=== PATIENT | female | born 1940 | race Caucasian/White ===

== ENCOUNTER 2016-11-14 11:45 | Emergency (ER) | payer MEDICARE ==
[~2016-11-14] VITALS: Ht 165.1 cm; Wt 68.0 kg
[2016-11-14 11:46] VITALS: BP 154/70; PULSE 84; RESP 20; TEMP 98.1; O2SAT 98
--- NOTE | 2016-11-14 12:13 | PD ---
Physical Exam Date Seen by Provider: Nov 14, 2016 Time Seen by Provider: 12:09 Data Data Last Documented VS Vital Signs Date Time Temp Pulse Resp B/P Pulse Ox O2 Delivery O2 Flow Rate FiO2 11/14/16 11:46 98.1 84 20 154/70 98 Room Air MDM Supervised Visit with BRIANA: No Narrative Course 76 YO F with complaint of 3 day history of malaise, fever. Saw PCP 11/13, on antibiotics sans improvement. Hx hysterectomy October 12, Dr. Huitron. Vitals reviewed. Awaiting bed placement. Ashley Crockett Nov 14, 2016 12:13
[2016-11-14] MEDS ORDERED: SODIUM CHLOR 0.9% 1000 ML INJ 1,000 ML IV SCH (12:31)
[2016-11-14] MEDS ORDERED: SODIUM CHLORIDE 0.9% FLUSH 10 ML FLUSH IV FLUSH PRN (12:45)
--- NOTE | 2016-11-14 12:45 | PD ---
HPI Chief Complaint: Fever Time Seen by Provider: 12:33 Travel History International Travel<30 days: No Contact w/Intl Traveler<30days: No Traveled to known affect area: No History of Present Illness HPI 76-year-old female with a history of hypothyroidism presents to the emergency department for evaluation of generalized weakness, loss of appetite and fever. The patient states that for the past 3 days she's had worsening weakness and and loss of appetite. States that she has had subjective fevers for 3 days as well. States that yesterday she went to her PCP's office and had a temperature of 102F. States that she had a hysterectomy one month ago 10/12/[address] Huitron. States that she has also noticed worsening abdominal pain over the past 3 days as well. States that yesterday when she saw her PCP he ordered an outpatient CT scan to be done on Wednesday and prescribed her Flagyl and Augmentin for possible infection. The patient states that since yesterday she is feeling worse which is why she presents to the emergency department. Denies any chest pain, shortness of breath, diarrhea, constipation, dysuria, hematuria, vaginal bleeding, vaginal discharge, cough or cold symptoms. Prior abdominal surgeries include a tubal ligation. This recent hysterectomy was a laparoscopic vaginal hysterectomy with right salpingo-oophorectomy and left salpingectomy leaving only the left ovary. PCP is Dr. Huitron. [facility] Past Medical History Hx Anticoagulant Therapy: No Cardiovascular Problems: No Chemotherapy: No Cerebrovascular Accident: No Diabetes: No Respiratory: No Thyroid Disease: Yes Past Surgical History Hysterectomy: Yes Social History Alcohol Use: No Tobacco Use: No Substance Use: No Allergies-Medications (Allergen,Severity, Reaction): Coded Allergies: Cipro (Verified Allergy, Severe, muscle aches, 11/14/16) Codeine (Verified Allergy, Unknown, 11/14/16) Yeast Extracts (Verified Allergy, Unknown, 11/14/16) Zithromax (Verified Allergy, Unknown, 11/14/16) Reported Meds & Prescriptions Reported Meds & Active Scripts Active Macrobid (Nitrofurantoin Monohydrate Macrocrystals) 100 Mg Capsule 100 Mg PO BID 10 Days Review of Systems Except as stated in HPI: all other systems reviewed are Neg Physical Exam Narrative GENERAL: Well-nourished and well-developed pleasant female patient in no acute distress who is nontoxic appearing. SKIN: Warm and dry. HEAD: Normocephalic and atraumatic. EYES: No injection, drainage, or hyphema noted. PERRLA. EOMI. ENT: No nasal drainage noted. Oropharynx is clear. NECK: Supple and the trachea is midline. CARDIOVASCULAR: Regular rate and rhythm. RESPIRATORY: Breath sounds are equal bilaterally with no accessory muscle use, wheezing, rhonchi, or crackles. GASTROINTESTINAL: Well-healed laparoscopic surgical incisions noted. Generalized abdominal tenderness to palpation, worse in the left lower quadrant. No rebound tenderness or guarding. Abdomen is soft and nondistended. MUSCULOSKELETAL: No obvious deformities, swelling, cyanosis, or ecchymosis is present throughout the upper and lower extremities. Patient has full range of motion without any signs of neurovascular compromise. NEUROLOGICAL: Awake, alert, and oriented. Normal speech and gait. Cranial nerves are grossly intact. Data Data Last Documented VS Vital Signs Date Time Temp Pulse Resp B/P Pulse Ox O2 Delivery O2 Flow Rate FiO2 11/14/16 17:56 98.3 78 20 148/72 99 Room Air Orders Complete Blood Count With Diff (11/14/16 12:31) Comprehensive Metabolic Panel (11/14/16 12:31) Lipase (11/14/16 12:31) Prothrombin Time / Inr (Pt) (11/14/16 12:31) Act Partial Throm Time (Ptt) (11/14/16 12:31) Urinalysis - C+S If Indicated (11/14/16 12:31) Ct Abd/Pel W Iv Contrast(Rout) (11/14/16 12:31) Iv Access Insert/Monitor (11/14/16 12:31) Ecg Monitoring (11/14/16 12:31) Oximetry (11/14/16 12:31) Sodium Chlor 0.9% 1000 Ml Inj (Ns 1000 M (11/14/16 12:31) Sodium Chloride 0.9% Flush (Ns Flush) (11/14/16 12:45) Electrocardiogram (11/14/16 12:31) Chest, Single Ap (11/14/16 12:31) Lactic Acid Sepsis Protocol (11/14/16 12:31) Influenzae A/B Antigen (11/14/16 12:31) Blood Culture (11/14/16 12:31) Urine Culture (11/14/16 14:05) Iohexol 350 Inj (Omnipaque 350 Inj) (11/14/16 15:55) Ceftriaxone Inj (Rocephin Inj) (11/14/16 16:30) Labs Laboratory Tests Test 11/14/16 11/14/16 12:45 14:05 White Blood Count 10.9 TH/MM3 Red Blood Count 4.73 MIL/MM3 Hemoglobin 12.3 GM/DL Hematocrit 36.5 % Mean Corpuscular Volume 77.3 FL Mean Corpuscular Hemoglobin 26.0 PG Mean Corpuscular Hemoglobin 33.7 % Concent Red Cell Distribution Width 15.7 % Platelet Count 219 TH/MM3 Mean Platelet Volume 8.8 FL Neutrophils (%) (Auto) 71.2 % Lymphocytes (%) (Auto) 14.5 % Monocytes (%) (Auto) 7.8 % Eosinophils (%) (Auto) 5.4 % Basophils (%) (Auto) 1.1 % Neutrophils # (Auto) 7.8 TH/MM3 Lymphocytes # (Auto) 1.6 TH/MM3 Monocytes # (Auto) 0.9 TH/MM3 Eosinophils # (Auto) 0.6 TH/MM3 Basophils # (Auto) 0.1 TH/MM3 CBC Comment AUTO DIFF Differential Comment AUTO DIFF CONFIRMED Prothrombin Time 12.0 SEC Prothromb Time International 1.1 RATIO Ratio Activated Partial 34.8 SEC Thromboplast Time Sodium Level 138 MEQ/L Potassium Level 3.7 MEQ/L Chloride Level 103 MEQ/L Carbon Dioxide Level 25.1 MEQ/L Anion Gap 10 MEQ/L Blood Urea Nitrogen 14 MG/DL Creatinine 1.00 MG/DL Estimat Glomerular Filtration 54 ML/MIN Rate Random Glucose 111 MG/DL Lactic Acid Level 1.3 mmol/L Calcium Level 8.8 MG/DL Total Bilirubin 0.7 MG/DL Aspartate Amino Transf 28 U/L (AST/SGOT) Alanine Aminotransferase 36 U/L (ALT/SGPT) Alkaline Phosphatase 89 U/L Total Protein 7.4 GM/DL Albumin 2.9 GM/DL Lipase 79 U/L Urine Color YELLOW Urine Turbidity HAZY Urine pH 5.5 Urine Specific [place] 1.009 Urine Protein NEG mg/dL Urine Glucose (UA) NEG mg/dL Urine Ketones 40 mg/dL Urine Occult Blood NEG Urine Nitrite NEG Urine Bilirubin NEG Urine Urobilinogen LESS THAN 2.0 MG/DL Urine Leukocyte Esterase LARGE Urine RBC 3 /hpf Urine WBC 83 /hpf Urine Squamous Epithelial 1 /hpf Cells Urine Transitional Epithelial 1 /hpf Cells Urine Renal Epithelial Cells 1 /hpf Urine Bacteria OCC /hpf Urine Hyaline Casts 3 /lpf Urine Mucus FEW /lpf Microscopic Urinalysis Comment CULTURE INDICATED MDM Medical Decision Making Medical Screen Exam Complete: Yes Emergency Medical Condition: Yes Differential Diagnosis UTI versus postsurgical complication versus colitis versus diverticulitis versus viral illness versus other Narrative Course 76-year-old female presents to the emergency department for evaluation of fever , generalized weakness, decreased appetite, abdominal pain for 3 days in the setting of recent hysterectomy. Patient is afebrile, vital signs are stable. On physical examination she does have some generalized abdominal tenderness worse in the left lower quadrant. No peritoneal signs. IV access is obtained, labs were drawn and sent. Patient is placed on cardiac telemetry and pulse oximetry monitoring. Patient is administered IV fluids. I did offer the patient medication for pain however at this time she states she does not wish to have any pain medication. CT the abdomen and pelvis has been ordered and is pending. CBC is unremarkable. CMP is unremarkable. Lactic acid is 1.3. Coags are unremarkable. Urinalysis shows 40 ketones, large leukocyte esterase, 83 white blood cells, occasional bacteria, few mucus. CT of the abdomen and pelvis with IV contrast shows expected findings from recent hysterectomy, sigmoid diverticulosis. No significant free fluid. No evidence of free intraperitoneal gas. Patient has remained stable and without complaint here in the emergency department. Labs are reassuring. CT the abdomen and pelvis is negative. UA shows urinary tract infection. Because the patient had a recent urinary catheter for her surgery will treat her with Macrobid for UTI, ideally would give Cipro but she's reporting it gives her muscle aches. She is given a dose of Rocephin 1 g IV here in the ED. Advised to follow-up with her PCP. Patient verbalizes understanding and agreement with treatment plan. I discussed the case with my attending physician Dr. Bauer who is aware of the patients history, physical examination findings, and treatment plan. Diagnosis Primary Impression: Urinary tract infection Qualified Code: N39.0 - Urinary tract infection without hematuria, site unspecified Referrals: Primary Care Physician Patient Instructions: General Instructions, Urinary Tract Infection in Women ( ED) Additional Instructions: Stop both Augmentin and Flagyl. Start taking Macrobid. Follow-up with your Primary Care Physician. Return to the ED for any acute worsening of symptoms. Med/Other Pt SpecificInfo: Prescription(s) given Scripts Nitrofurantoin Monohydrate Macrocrystals (Macrobid)100 Mg [id number] Mg PO BID 10 Days Ref 0 Prov:Judy Bauer DO 11/14/16 Disposition: 01 DISCHARGE HOME Condition: Stable Traci Harrison Nov 14, 2016 12:45
[2016-11-14 13:10] VITALS: RESP 16; O2SAT 98
[2016-11-14 13:32] LABS: AUTOMATED NEUTROPHIL # 7.8 TH/MM3 (1.8-7.7); BASOPHIL # 0.1 TH/MM3 (0-0.2); BASOPHIL % 1.1 % (0.0-2.0); EOSINOPHIL # 0.6 TH/MM3 (0-0.4); EOSINOPHIL % 5.4 % (0.0-4.0); HEMATOCRIT 36.5 % (35.0-46.0); LYMPH % 14.5 % (9.0-44.0); LYMPHOCYTE # 1.6 TH/MM3 (1.0-4.8); MEAN CELL VOLUME 77.3 FL (80.0-100.0); MEAN CORPUSCULAR HGB CONC 33.7 % (32.0-36.0); MONO % 7.8 % (0.0-8.0); NEUT % 71.2 % (16.0-70.0); PLATELET COUNT 219 TH/MM3 (150-450); RED BLOOD COUNT 4.73 MIL/MM3 (4.00-5.30); RED CELL DISTRIBUTION WIDTH 15.7 % (11.6-17.2); WHITE BLOOD COUNT 10.9 TH/MM3 (4.0-11.0)
[2016-11-14 13:38] LABS: HEMO FLAGS AUTO DIFF
[2016-11-14 13:40] LABS: APTT (PATIENT) 34.8 SEC (24.3-30.1); INTERNATIONAL NORMALIZED RATIO 1.1 RATIO
--- NOTE | 2016-11-14 13:44 | RADRPT ---
EXAM DATE/TIME: 11/14/2016 12:49 [facility] COMPARISON: No previous studies available for comparison. INDICATIONS : Fever MEDICAL HISTORY : None. SURGICAL HISTORY : Hysterectomy. Thyroidectomy ENCOUNTER: Initial ACUITY: 1 day PAIN SCORE: 0/10 LOCATION: Bilateral chest FINDINGS: Single AP view of the chest. The lungs are clear. Cardiomediastinal silhouette within normal limits. No evidence of pleural effusion or pneumothorax. CONCLUSION: No acute cardiopulmonary disease identified. Bryan Shelton MD on November 14, 2016 at 13:42 Board Certified Radiologist. This report was verified electronically.
[2016-11-14 13:59] LABS: ANION GAP 10 MEQ/L (5-15); AST (GOT) 28 U/L (15-37); BICARBONATE 25.1 MEQ/L (21.0-32.0); BLOOD UREA NITROGEN 14 MG/DL (7-18); CHLORIDE 103 MEQ/L (98-107); GLOMERULAR FILTRATION RATE 54 ML/MIN (>89); POTASSIUM 3.7 MEQ/L (3.5-5.1); SODIUM (NA) 138 MEQ/L (136-145)
[2016-11-14 14:00] VITALS: BP 142/74; PULSE 82; RESP 20; O2SAT 92
[2016-11-14 14:04] LABS: SCAN/DIFF AUTO DIFF CONFIRMED
[2016-11-14 14:06] LABS: ALKALINE PHOSPHATASE 89 U/L (45-117); ALT (GPT) 36 U/L (10-53); TOTAL BILIRUBIN ADULT 0.7 MG/DL (0.2-1.0)
[2016-11-14 14:25] LABS: BLOOD, URINE NEG (NEG); COMMENT (UR) CULTURE INDICATED; CULTURE IF INDICATED CULTURE INDICATED; GLUCOSE,URINE NEG (NEG); HYALINE CAST, URINE 3 /lpf (RARE); KETONE, URINE 40 mg/dL (NEG); MUCUS URINE FEW /lpf (OCC); NITRITE,URINE NEG (NEG); PH, URINE 5.5 (5.0-8.5); RENAL EPITHELIAL CELLS 1 /hpf; SQUAMOUS EPITHELIAL CELL URINE 1 /hpf (0-5); TRANSITIONAL EPI CELLS, URINE 1 /hpf; URINE COLOR YELLOW (YELLW/STRAW)
[2016-11-14 14:33] LABS: BACTERIA, URINE OCC /hpf
[2016-11-14] MEDS ORDERED: IOHEXOL 350 MG/ML 10 ML VIAL (for RAD DIAG) IV ONE (15:55)
--- NOTE | 2016-11-14 16:22 | RADRPT ---
EXAM DATE/TIME: 11/14/2016 15:35 [facility] COMPARISON: No previous studies available for comparison. INDICATIONS : Lower abdominal pain and fever. Recent hysterectomy. IV CONTRAST: 98 cc Omnipaque 350 (iohexol) IV ORAL CONTRAST: No oral contrast ingested. RADIATION DOSE: 13.22 CTDIvol (mGy) MEDICAL HISTORY : Hypothyroidism. SURGICAL HISTORY : Hysterectomy. ENCOUNTER: Initial ACUITY: 3 days PAIN SCALE: 5/10 LOCATION: Bilateral lower quadrant TECHNIQUE: Volumetric scanning of the abdomen and pelvis was performed. Using automated exposure control and ad justment of the mA and/or kV according to patient size, radiation dose was kept as low as reasonably achievable to obtain optimal diagnostic quality images. FINDINGS: LOWER LUNGS: The visualized lower lungs are clear. LIVER: Homogeneous density without lesion. There is no dilation of the biliary tree. Cholecystectomy. SPLEEN: Normal size without lesion. PANCREAS: Within normal limits. KIDNEYS: Normal in size and shape. There is no mass, stone or hydronephrosis. ADRENAL GLANDS: Within normal limits. VASCULAR: There is no aortic aneurysm. BOWEL/MESENTERY: No dilated loops of small or large bowel. Multiple small sigmoid diverticula. ABDOMINAL WALL: Within normal limits. RETROPERITONEUM: There is no lymphadenopathy. BLADDER: No wall thickening or mass. REPRODUCTIVE: Hysterectomy. There is a small amount of fluid at the hysterectomy site which measures 2 cm in thick ness. No free fluid in the cul-de-sac. INGUINAL: There is no lymphadenopathy or hernia. MUSCULOSKELETAL: Within normal limits for patient age. CONCLUSION: Expected findings from recent hysterectomy. Sigmoid diverticulosis. No significant free fluid. No evidence of free intraperitoneal gas. Daniel Whitehead MD on November 14, 2016 at 16:16 Board Certified Radiologist. This report was verified electronically.
[2016-11-14] MEDS ORDERED: cefTRIAXone INJ 1,000 MG in SODIUM CHLORIDE 0.9% INJ 100 ML IV ONE (16:30)
[2016-11-14] MEDS ORDERED: CIPR-9 PO (16:46)
[2016-11-14 17:56] VITALS: BP 148/72; PULSE 78; RESP 20; TEMP 98.3; O2SAT 99
[2016-11-14] MEDS ORDERED: MACR100C2 PO (18:00)
--- NOTE | 2016-11-15 14:10 | EKG ---
Date Performed: 11/14/2016 Time Performed: 15:16:30 PTAGE: 76 years EKG: Sinus rhythm MINIMAL VOLTAGE CRITERIA FOR LVH, CONSIDER NORMAL VARIANT BORDERLINE ECG NO PREVIOUS TRACING DOCTOR: Donny Anderson Interpretating Date/Time 11/15/2016 14:08:12
== END 2016-11-14 18:36 | disposition home or self-care (01) ==
LOC: NEPE 11:45
DX: N39.0 Urinary tract infection, site not specified (principal); R94.31 Abnormal electrocardiogram [ECG] [EKG]
CPT/HCPCS: 71010; 74177; 80053; 81001; 83605; 83690; 85025; 85610; 85730; 87040; 87086; 93005; 96361; 96374; 99285; J0696; J7030; Q9967